=== PATIENT | male | born 1990 | race African-American/Black ===

== ENCOUNTER 2022-08-09 14:47 | Emergency (ER) | payer MEDICAID ==
[~2022-08-09] VITALS: Ht 193 cm; Wt 85.0 kg
[2022-08-09 14:52] VITALS: BP 134/82
== END 2022-08-09 15:45 | disposition home or self-care (01) ==
LOC: ER 14:59
DX: S09.90XA Unspecified injury of head, initial encounter (principal); Z56.1 Change of job; X58.XXXA Exposure to other specified factors, initial encounter; Y93.89 Activity, other specified; Y92.89 Other specified places as the place of occurrence of the external cause; Y99.8 Other external cause status
CPT/HCPCS: 99283

== ENCOUNTER 2025-03-03 11:20 | Emergency (ER) | payer MEDICAID ==
[~2025-03-03] VITALS: Ht 193 cm; Wt 86.0 kg
[2025-03-03 11:31] VITALS: O2SAT 100
[2025-03-03] MEDS: HYDROCODONE/ACETAMINOPHEN 10/325MG TABLET PO ONE (13:51)
[2025-03-03] MEDS: IBUPROFEN 800MG TABLET PO ONE (14:12)
[2025-03-03] MEDS: BACITRACIN ZINC OINT UDPKT TOP ONE (14:16)
[2025-03-03] MEDS ORDERED: IBUP-2030 MT (16:00)
[2025-03-03] MEDS ORDERED: HYDR-4001 MT (16:00)
[2025-03-03] MEDS ORDERED: BO1 TP (16:00)
[2025-03-03] MEDS ORDERED: SULF1TAB48 MT (16:00)
[2025-03-03 16:08] VITALS: BP 116/72; PULSE 81; RESP 16; TEMP 37.2; O2SAT 100
== END 2025-03-03 16:10 | disposition home or self-care (01) ==
LOC: ER 11:20
DX: S62.634A Displaced fracture of distal phalanx of right ring finger, initial encounter for closed fracture (principal); S60.412A Abrasion of right middle finger, initial encounter; S60.414A Abrasion of right ring finger, initial encounter; T23.021A Burn of unspecified degree of single right finger (nail) except thumb, initial encounter; Z79.899 Other long term (current) drug therapy; W39.XXXA Discharge of firework, initial encounter; Y93.89 Activity, other specified; Y92.89 Other specified places as the place of occurrence of the external cause; Y99.8 Other external cause status
CPT/HCPCS: 99283; 73130; 16020; 29130; A6449